=== PATIENT | male | born 1970 | race Caucasian/White ===

== ENCOUNTER 2016-12-09 19:41 | Inpatient (IN) | payer MEDICARE ==
--- NOTE | ~2016-12-09 | CR72 ---
[facility] A Service of [facility] & [facility] RADIOLOGY TEXT RESULTS PATIENT: MARLENY REYNOSO LOCATION: [facility] [address]38-15 : [birth year] UNIT #: [id number] AGE: [address]: Kiara Olivo MD SEX: M ORDER DR: [id number] [facility] [address] [facility]. [place], [place] [address] [id number] I MR#: [id number] Acc #: [id number] NAME: MARLENY REYNOSO : 1970 SEX: M STUDY DATE/TIME: 12/09/2016 22:03 UNIT: [facility] ROOM: [id number] STUDY DESCRIPTION: CR Chest Single View Portable Attending Physician: Rossana Silva M.D. Ordering Physician: Prasanth Siddiqi D.O. Primary Care Physician: Niecy Brewster M.D. MEDICAL IMAGING REPORT This report is preliminary unless electronic signature is present EXAM Portable chest. HISTORY Shortness of air. Decreased oxygen saturation. Cardiac arrest today. FINDINGS ET tip is approximately 6 cm above the pauline. NG tube tip is in the gastric fundus approximately 6 cm beyond the level of the EG junction. Mild bilateral perihilar atelectasis or edema. Small bilateral pleural effusions. Dictated by... Koko Argueta M.D. THIS IS AN ELECTRONICALLY VERIFIED REPORT Koko Argueta M.D. at 12/10/2016 3:25 PM DAYANNA/flory TD: 12/09/2016 23:25 JOB #: [id number] MEDICAL IMAGING REPORT Page 1 of 1 COPY
--- NOTE | ~2016-12-09 | CT4 ---
[facility] A Service of [facility] & [facility] RADIOLOGY TEXT RESULTS PATIENT: MARLENY REYNOSO LOCATION: [facility] 17984-16 : [birth year] UNIT #: [id number] AGE: [address]: Kiara Olivo MD SEX: M ORDER DR: [id number] [facility] [address] [place], [place] [address] [id number] I MR#: [id number] Acc #: [id number] NAME: MARLENY REYNOSO : 1970 SEX: M STUDY DATE/TIME: 12/09/2016 21:33 UNIT: [facility] ROOM: [id number] STUDY DESCRIPTION: CT Abd and Pelv Wo Cont Attending Physician: Rossana Silva M.D. Ordering Physician: Prasanth Siddiqi D.O. Primary Care Physician: Niecy Brewster M.D. MEDICAL IMAGING REPORT This report is preliminary unless electronic signature is present EXAM CT abdomen and pelvis without contrast. HISTORY Cardiac arrest, abdominal distension, unresponsive. TECHNIQUE NOTE: This CT exam was performed with one or more of the following radiation dose reduction techniques: automatic exposure control, adjustment of mA and/or kV according to patient size, and iterative reconstruction. FINDINGS Axial images performed through the abdomen and pelvis without contrast. Multiplanar reconstructed images reviewed at a workstation. ABDOMEN: Bibasilar atelectasis. Heart size within normal limits. No pericardial effusion. Liver, spleen, gallbladder, pancreas, kidneys and adrenal glands unremarkable on this unenhanced study. No free air or free fluid. Marked gastric distension, possibly related to ventilatory efforts. Increased small and large bowel gas nonspecific could reflect mild ileus. Retroperitoneum unremarkable. Collapsed IVC may be seen with decreased cardiac output hypovolemia. PELVIS: Villegas catheter within a decompressed bladder. Osseous structures remarkable for L5-S1 degenerative disc changes. IMPRESSION 1. Moderate amount of bibasilar atelectasis. 2. Marked gas and fluid distension of the stomach, possibly related to ventilatory efforts. There is also some distension of the bowel, primarily the colon, and to a lesser extent small bowel. This may be related to a component of ileus. STS. [facility] A Service of [facility] & [facility] RADIOLOGY TEXT RESULTS PATIENT: MARLENY REYNOSO LOCATION: [facility] [address]771-70 : [birth year] UNIT #: [id number] AGE: [address]: Kiara Olivo MD SEX: M ORDER DR: 3. Flattened IVC may be seen with hypovolemia or shock. Dictated by... Hilda Nguyen M.D. THIS IS AN ELECTRONICALLY VERIFIED REPORT Hilda Nguyen M.D. at 12/10/2016 2:05 PM Mar TD: 12/09/2016 22:59 JOB #: [id number] MEDICAL IMAGING REPORT Page 1 of 1 COPY
--- NOTE | ~2016-12-09 | CO ---
Unit #: [id number] #: [id number] Patient: MARLENY REYNOSO [id number] [address] [place], [place] [address] [id number] I MR#: [id number] NAME: MARLENY REYNOSO. ROOM: 17260 Age: 46 Sex: M Admission Date: 12/09/2016 : 1970 Attending Physician: Kiara Olivo M.D. Primary Care Physician: Niecy Brewster M.D. CONSULTATION REPORT REASON FOR CONSULTATION Cardiac arrest, respiratory failure. CHIEF COMPLAINT Unresponsiveness and cardiac arrest. HISTORY OF PRESENT ILLNESS The patient is basically a 46-year-old male with past medical history of hepatitis C, gastroesophageal reflux disease, dyslipidemia, bipolar disorder, chronic pain, found unresponsive, was intubated, and CPR was done and the patient regained spontaneous circulation, and currently intubated and CT head showed diffuse anoxia and I am seeing the patient at the bedside unresponsive. REVIEW OF SYSTEMS Unobtainable. PAST MEDICAL HISTORY As described above. SOCIAL HISTORY Positive for drug abuse. PHYSICAL EXAMINATION VITAL SIGNS: Temperature 98, pulse 87, respiration 12, and blood pressure 110/70. NEUROLOGIC: Unresponsive. CVS: S1 and S2 plus. CHEST: Bilateral air entry, bilateral mild rhonchi. GI: Distended, bowel sounds positive. EXTREMITIES: No edema. DIAGNOSTIC STUDIES Labs and imaging has been reviewed. MEDICATIONS As per OCT. ALLERGIES Have been reviewed. ASSESSMENT/PLAN 1. Status post cardiac arrest. 2. Acute respiratory failure. Unit #: [id number] #: [id number] Patient: MARLENY REYNOSO 3. Likely drug overdose. 4. Anoxic brain injury. 5. Questionable heroin overdose. 6. Aspiration. 7. Hypertension. 8. Hepatitis C. 9. Gastroesophageal reflux disease. 10. Chronic pain. Plan is continue ventilator support, neurology consultation, IV antibiotics, bronchodilator, 2D echo, troponin x2, and the patient will be closely monitored. Please see orders for detailed plan. Prognosis is extremely poor, will discuss with the family. Continue IV fluids. Thank you very much for this consultation. Total critical care time sixty-five minutes in the critical care of this patient. Dictated by... Katelyn Wood M.D. Gisela TD: 12/10/2016 09:26 JOB #: [id number] CONSULTATION REPORT Page 1 of 1 X Katelyn Wood MD CONSULTATION REPORT
--- NOTE | ~2016-12-09 | CT71 ---
[facility] A Service [facility] RADIOLOGY TEXT RESULTS PATIENT: MARLENY REYNOSO LOCATION: [facility] [address]31-20 : [birth year] UNIT #: [id number] AGE: [address]: Kiara Olivo MD SEX: M ORDER DR: [id number] [facility] [address] [facility]. [place], [place] [address] [id number] I MR#: [id number] Acc #: [id number] NAME: MARLENY REYNOSO : 1970 SEX: M STUDY DATE/TIME: 12/09/2016 21:22 UNIT: [facility] ROOM: [facility] STUDY DESCRIPTION: CT Head Wo Contrast Attending Physician: Rossana Silva M.D. Ordering Physician: Prasanth Siddiqi D.O. Primary Care Physician: Niecy Brewster M.D. MEDICAL IMAGING REPORT This report is preliminary unless electronic signature is present EXAM Noncontrast head CT. HISTORY Cardiac arrest, abdominal distension. Patient unresponsive. TECHNIQUE NOTE: This CT exam was performed with one or more of the following radiation dose reduction techniques: automatic exposure control, adjustment of mA and/or kV according to patient size, and iterative reconstruction. FINDINGS Axial noncontrast imaging of the brain demonstrates marked decreased attenuation throughout the brain parenchyma to include the brainstem with loss of the normal mayberry-white junction. Findings most typical of global anoxia. No mass or hemorrhage, abnormal extraaxial fluid collections. There is fluid in the sphenoid sinus and ethmoid and maxillary sinuses could reflect sinusitis. IMPRESSION 1. Abnormal CT of the brain demonstrating diffuse hypodensity throughout both cerebral hemispheres to include the cerebellum and brainstem. Findings most compatible with global anoxia. There is also loss of the normal mayberry-white junction, an additional finding associated with anoxic event. 2. Ethmoid, sphenoid and maxillary sinus fluid could be related to sinusitis or ventilatory and resuscitative efforts. Dictated by.Liliana Nguyen M.D. [facility] A Service [facility] RADIOLOGY TEXT RESULTS PATIENT: MARLENY REYNOSO LOCATION: [facility] [address]-99 : [birth year] UNIT #: [id number] AGE: [address]: Kiara Olivo MD SEX: M ORDER DR: THIS IS AN ELECTRONICALLY VERIFIED REPORT Hilda Nguyen M.D. at 12/10/2016 2:05 PM Mar TD: 12/09/2016 22:50 JOB #: [id number] MEDICAL IMAGING REPORT Page 1 of 1 COPY
--- NOTE | ~2016-12-09 | CR72 ---
[facility] A Service of [facility] & [facility] RADIOLOGY TEXT RESULTS PATIENT: MARLENY REYNOSO LOCATION: [facility] [address]-83 : [birth year] UNIT #: [id number] AGE: [address]: Kiara Olivo MD SEX: M ORDER DR: [id number] [facility] [address] [facility]. [place], [place] [address] [id number] I MR#: [id number] Acc #: [id number] NAME: MARLENY REYNOSO : 1970 SEX: M STUDY DATE/TIME: 12/09/2016 20:03 UNIT: [facility] ROOM: 34894 STUDY DESCRIPTION: CR Chest Single View Portable Attending Physician: Rossana Silva M.D. Ordering Physician: Prasanth Siddiqi D.O. Primary Care Physician: Niecy Brewster M.D. MEDICAL IMAGING REPORT This report is preliminary unless electronic signature is present EXAM Portable chest HISTORY Full arrest, shortness of air intubated. FINDINGS Portable views submitted. Films were obtained on a backboard. ET tube estimated about 5.3 cm above the pauline. Low lung volumes but no focal airspace disease. Heart, mediastinum unremarkable. Marked air distension of the stomach which may be related to ventilatory efforts. No definite pneumothorax. Dictated by... Hilda Nguyen M.D. THIS IS AN ELECTRONICALLY VERIFIED REPORT Hilda Nguyen M.D. at 12/10/2016 2:05 PM YUNIER/rafael TD: 12/09/2016 22:30 JOB #: [id number] MEDICAL IMAGING REPORT Page 1 of 1 COPY
--- NOTE | ~2016-12-09 | HP ---
Unit #: [id number] #: [id number] Patient: MARLENY REYNOSO [id number] [address] [place], [place] [address] [id number] I MR#: [id number] NAME: MARLENY REYNOSO. ROOM: 05748 Age: 46 Sex: M Admission Date: 12/09/2016 : 1970 Attending Physician: Kiara Olivo M.D. Primary Care Physician: Niecy Brewster M.D. HISTORY AND PHYSICAL CHIEF COMPLAINT Status post cardiopulmonary arrest. HISTORY OF PRESENT ILLNESS This is a 46-year-old gentleman, his and mother are at bedside, as per them, he has a history of hepatitis C, recently started treatment two weeks ago, history of acid reflux, hypertension, dyslipidemia, bipolar, chronic pain. He was at his mother's house around quarter to 6:00, he left and went to friend's house, as per , they do drugs, and over there he was found to start getting sleepy and lips turning blue, and EMS was called. On EMS arrival, the patient was found to be in V-fib. He was shocked twice and then intubated. The patient was brought to the emergency room and on arrival to the emergency room, he has a pulse and started on the Levophed and he had been maintaining pulse and being admitted. No other history is available. PAST MEDICAL HISTORY 1. History of hepatitis C recently started on treatment two weeks ago. 2. Gastroesophageal reflux disease. 3. Dyslipidemia. 4. Bipolar. 5. History of chronic pain. PAST SURGICAL HISTORY No surgical intervention in the past as per family. SOCIAL HISTORY As per and mother, he has history of smoking one and a half packs daily since the age of 10, does not drink alcohol, has a history of cocaine and heroin abuse in the past. HOME MEDICATIONS Not available at this time. ALLERGIES No known drug allergies. REVIEW OF SYSTEMS Not obtainable from the patient as the patient is on the ventilator. PHYSICAL EXAMINATION GENERAL: Middle-aged man currently on the ventilator. He is on the ventilator, intubated. VITAL SIGNS: His current vitals are the following, heart rate 108, Unit #: [id number] #: [id number] Patient: FEY,ROCIO respiratory rate is 14, and blood pressure 103/53. HEENT EXAMINATION: Head: Normocephalic and atraumatic. NECK: Supple. No jugular venous distention. LUNGS: Bilateral rhonchi, crackles positive. HEART: S1 and S2, regular rate and rhythm. ABDOMEN: Distended. EXTREMITIES: Inspection normal. No cyanosis, no clubbing, and no edema. NEUROLOGIC: The patient is on the ventilator. DIAGNOSTIC STUDIES LABORATORY: Laboratory workup is the following, recent ABG shows pH 7.210, pCO2 55, pO2 92. Chemistry, sodium 141, potassium 5.2, chloride 99, glucose 235, BUN 12, creatinine 1.9, LFT within normal limits. Urine toxicology positive for opiates. Alcohol level less than 5, INR is 1.2. Urinalysis shows cloudy appearance. WBC 50-100, troponin less than 0.05. CBC, white count 12, hemoglobin 12, hematocrit 39, platelets 251. ASSESSMENT/PLAN 1. Status post cardiopulmonary arrest. 2. Urinary tract infection start on Zosyn. 3. Questionable heroin overdose. 4. Abdominal CT scan, the patient is going at this time for CT head and also will do a CT scan without contrast while he is there and CT scan. 5. History of hypertension. 6. History of hepatitis C. 7. History of gastroesophageal reflux disease. 8. Dyslipidemia. 9. Bipolar. 10. Chronic pain. 11. DVT prophylaxis, will place the patient on Lovenox if CT is negative for bleed. 12. Will admit the patient to intensive care unit and start empirically on IV antibiotic, continue Levophed drip to titrate to keep assisted blood pressure more than that, IV Protonix, Zofran p.r.n., empirically start on vancomycin and Zosyn. 13. Ask pulmonary, Dr. Wood to evaluate. 14. Cardiology, Dr. Ramírez to evaluate. Dictated by Oren Guillen/luciana TD: 12/10/2016 08:39 JOB #: [id number] Unit #: [id number] #: [id number] Patient: MARLENY REYNOSO HISTORY AND PHYSICAL Page 1 of 1 X X HISTORY AND PHYSICAL
--- NOTE | ~2016-12-09 | EKG ---
PATIENT: MARLENY GEE UNIT #: [id number] Ventricular Rate: 103 BPM Atrial Rate: 122 BPM QRS Duration: 106 ms Q-T Interval: 442 ms QTC Calculation(Bezet): 579 ms Calculated R [place]: 5 degrees Calculated T [place]: 154 degrees Diagnosis Line: Atrial fibrillation with rapid ventricular Diagnosis Line: response Diagnosis Line: Low voltage QRS Diagnosis Line: ST and T wave abnormality, consider lateral ischemia Diagnosis Line: Prolonged QT Diagnosis Line: Abnormal ECG Diagnosis Line: No previous ECGs available Diagnosis Line: Confirmed by ISA VAZQUEZ MD ([id number]) on Diagnosis Line: 12/10/2016 7:00:31 AM INTERPRETING : [facility]
[~2016-12-09 19:41] MED LIST: ALBUTEROL17 GM INH; ALPRAZOLAM PO; DARVOCET-N 1001 TAB PO; EXCEDRIN MIGRAI1 TA1 PO; FLEXERIL PO; KEFLEX PO; LEXAPRO; LISINOPRIL PO; MEDROL PO; MEDROL4 MG/DOSE- PO; POLYTRIM EYE DR10 ML OP; PRILOSEC PO; PRINIVIL20 M1 PO; SEROQUEL; VICODIN 5/500 T1 TAB PO; ZITHROMAX PO; ZITHROMAX1 G/PKT PO; ZITHROMAX500 MG PO
[2016-12-09 19:47] LABS: ARTERIAL BLD GAS O2 SATURATION 82.4 % (90.0-100.0); ARTERIAL BLOOD GAS CARBOXY HB 8.5 %sat (0.0-9.0); ARTERIAL BLOOD GAS HCO3 20.2 mmol/L; ARTERIAL BLOOD GAS PO2 81.1 mmHg (80.0-100)
[2016-12-09 19:48] LABS: ARTERIAL BLOOD GAS ALLEN TEST NORMAL; ARTERIAL BLOOD GAS ART SITE LEFT RADIAL; ARTERIAL BLOOD GAS DELIVERY VENT; ARTERIAL BLOOD GAS PCO2 82.8 mmHg (35.0-45.0); ARTERIAL BLOOD GAS VENT MODE AC; ARTERIAL BLOOD GAS pH 6.996 (7.350-7.450); ARTERIAL DRAW? YES
[2016-12-09 20:16] LABS: URINE SOURCE CLEAN CATCH
[2016-12-09 20:22] LABS: URINE APPEARANCE CLOUDY; URINE BILIRUBIN NEG (NEG); URINE BLOOD TRACE (NEG); URINE COLOR YELLOW; URINE GLUCOSE NEG (NEG); URINE KETONE NEG (NEG); URINE LEUKOCYTE ESTERASE NEG (NEG); URINE NITRATE NEG (NEG); URINE PROTEIN 1+ (NEG); URINE SPECIFIC GRAVITY 1.007 (1.003-1.035); URINE UROBILINOGEN 0.2 MG/DL (NEG)
[2016-12-09 20:22] LABS: BASOPHIL# 0.2 X10e3 (0-0.3); BASOPHIL% 1.3 % (0-2.5); EOSINOPHIL# 0.3 X10e3 (0-0.7); EOSINOPHIL% 2.4 % (0.0-7.0); HEMATOCRIT 39.4 % (38.0-50.0); HEMOGLOBIN 12.6 gm/dL (13.0-16.0); LYMPHOCYTE# 4.2 X10e3 (1.0-3.5); LYMPHOCYTE% 33.7 % (17.0-45.0); MEAN CELL VOLUME 93.9 FL (83-96); MEAN CORPUSCULAR HEMOGLOBIN 30.1 PG (28-34); MEAN CORPUSCULAR HGB CONC 32.1 g/dL (30-36); MEAN PLATELET VOLUME 7.9 FL (6.5-11.5); MONOCYTE# 0.7 X10e3 (0-1.0); NEUTROPHIL# 7.1 X10e3 (1.5-7.1); NEUTROPHIL% 56.6 % (40-75); PLATELET COUNT 251 X10e3 (140-420); RED BLOOD COUNT 4.19 X10e (3.90-5.60); RED CELL DISTRIBUTION WIDTH 14.4 % (11.0-15.5); WHITE BLOOD COUNT 12.5 X10e3 (4.0-10.5)
[2016-12-09 20:23] LABS: POC - CKMB 1.1 ng/mL (0.0-7.9); POC - TROPONIN <0.05 ng/mL (<=0.05)
[2016-12-09 20:23] LABS: DIFF IND NO
[2016-12-09 20:24] LABS: CULTURE INDICATED? YES; URBCS1 AUWI 0-2 /[HPF] (0-2); URINE BACTERIA AUWI NEG (NEGATIVE); URINE SQUAMOUS EPITHELIAL CELL OCC /[HPF]; UWBCS1 AUWI 50-100 (0-5)
[2016-12-09 20:38] LABS: INR 1.2; PROTHROMBIN TIME (PATIENT) 13.1 SECONDS (9.6-11.5)
[2016-12-09 20:41] LABS: AMPHETAMINE NEG (NEG); BARBITURATES NEG (NEG); BENZODIAZEPINES NEG (NEG); COCAINE NEG (NEG); MARIJUANA NEG (NEG); OPIATES POS (NEG); TRICYCLIC ANTIDEPRESSANTS NEG (NEG); U METHADONE NEG (NEG)
[2016-12-09 20:43] LABS: ALBUMIN SERUM 3.1 g/dL (3.5-5.0); BILIRUBIN, DIRECT 0.1 mg/dL (0.0-0.2); BILIRUBIN,INDIRECT 0.4 mg/dL (0.0-0.9); BILIRUBIN,TOTAL 0.5 mg/dL (0.2-2.0); BUN/CREATININE RATIO 6.31; CREATININE SERUM 1.9 mg/dL (0.6-1.4); GLOM FILT RATE Estimated 40.8 mL/min (>60); POTASSIUM 5.2 mmol/L (3.5-5.1); PROTEIN TOTAL SERUM 5.9 g/dL (6.0-8.3)
[2016-12-09 20:47] LABS: ARTERIAL BLD GAS O2 SATURATION 89.5 % (90.0-100.0); ARTERIAL BLOOD GAS CARBOXY HB 6.6 %sat (0.0-9.0); ARTERIAL BLOOD GAS HCO3 22.2 mmol/L; ARTERIAL BLOOD GAS MET HB 0.9 %sat (0.0-2.0); ARTERIAL BLOOD GAS PO2 92.5 mmHg (80.0-100)
[2016-12-09 20:48] LABS: ARTERIAL BLOOD GAS ALLEN TEST NORMAL; ARTERIAL BLOOD GAS ART SITE LEFT RADIAL; ARTERIAL BLOOD GAS PCO2 55.4 mmHg (35.0-45.0); ARTERIAL DRAW? YES
[2016-12-09 20:49] LABS: ARTERIAL BLOOD GAS DELIVERY VENT; ARTERIAL BLOOD GAS VENT MODE AC
[2016-12-09 22:10] LABS: ARTERIAL BLD GAS O2 SATURATION 69.7 % (90.0-100.0); ARTERIAL BLOOD GAS CARBOXY HB 4.5 %sat (0.0-9.0); ARTERIAL BLOOD GAS HCO3 23.3 mmol/L; ARTERIAL BLOOD GAS MET HB 0.9 %sat (0.0-2.0)
[2016-12-09 22:13] LABS: ARTERIAL BLOOD GAS ART SITE LEFT BRACHIAL; ARTERIAL BLOOD GAS DELIVERY VENT; ARTERIAL BLOOD GAS PCO2 61.9 mmHg (35.0-45.0); ARTERIAL BLOOD GAS PO2 43.4 mmHg (80.0-100); ARTERIAL BLOOD GAS VENT MODE AC; ARTERIAL BLOOD GAS pH 7.184 (7.350-7.450); ARTERIAL DRAW? YES
[2016-12-09 22:41] LABS: POC - CKMB 6.4 ng/mL (0.0-7.9); POC - TROPONIN <0.05 ng/mL (<=0.05)
[2016-12-09 23:14] LABS: BUN/CREATININE RATIO 8.33; CALCIUM SERUM 6.8 mg/dL (8.4-10.2); CREATININE SERUM 1.8 mg/dL (0.6-1.4); GLOM FILT RATE Estimated 43.5 mL/min (>60); POTASSIUM 6.5 mmol/L (3.5-5.1)
[2016-12-10 00:09] LABS: ARTERIAL BLD GAS O2 SATURATION 55.9 % (90.0-100.0); ARTERIAL BLOOD GAS CARBOXY HB 2.6 %sat (0.0-9.0); ARTERIAL BLOOD GAS MET HB 0.6 %sat (0.0-2.0)
[2016-12-10 00:11] LABS: ARTERIAL BLOOD GAS ART SITE RIGHT BRACHIAL; ARTERIAL BLOOD GAS PCO2 59.9 mmHg (35.0-45.0); ARTERIAL BLOOD GAS PO2 33.1 mmHg (80.0-100); ARTERIAL BLOOD GAS pH 7.173 (7.350-7.450); ARTERIAL DRAW? YES
[2016-12-10 00:12] LABS: ARTERIAL BLOOD GAS DELIVERY VENT; ARTERIAL BLOOD GAS VENT MODE AC
== END 2016-12-10 02:06 | DRG 917 ==
LOC: CED 19:41 → CEDOF 21:40
PROVIDERS: Emergency Medicine; Internal Medicine
PROC: 5A1935Z Respiratory Ventilation, Less than 24 Consecutive Hours (ICD-10-PCS; principal; 2016-12-09)
PROC: 05H333Z Insertion of Infusion Device into Right Innominate Vein, Percutaneous Approach (ICD-10-PCS; 2016-12-09)
PROC: B54MZZA Ultrasonography of Right Upper Extremity Veins, Guidance (ICD-10-PCS; 2016-12-09)
DX: T40.1X1A Poisoning by heroin, accidental (unintentional), initial encounter (principal); J96.00 Acute respiratory failure, unspecified whether with hypoxia or hypercapnia; I46.9 Cardiac arrest, cause unspecified; G93.1 Anoxic brain damage, not elsewhere classified; N39.0 Urinary tract infection, site not specified; F11.10 Opioid abuse, uncomplicated; B19.20 Unspecified viral hepatitis C without hepatic coma; K21.9 Gastro-esophageal reflux disease without esophagitis; I10 Essential (primary) hypertension; E78.5 Hyperlipidemia, unspecified; F31.9 Bipolar disorder, unspecified; G89.29 Other chronic pain; F17.210 Nicotine dependence, cigarettes, uncomplicated; T17.900A Unspecified foreign body in respiratory tract, part unspecified causing asphyxiation, initial encounter
CPT/HCPCS: 36600; 70450; 71010; 74176; 80048; 80076; 80307; 81003; 82553; 82803; 82947; 84484; 85025; 85610; 85730; 86850; 86900; 86901; 87086; 92950; 93005; 94002; 94644; 96374; 96375; 99291; G0480; J0171; J1325; J2370; J2543; J3370